=== PATIENT | female | born 1960 | race Caucasian/White ===

== ENCOUNTER 2020-06-21 12:33 | Emergency (ER) | payer MEDICAID ==
[~2020-06-21] VITALS: Ht 154.9 cm; Wt 59.0 kg
[2020-06-21 13:22] VITALS: BP 134/67
--- NOTE | 2020-06-21 14:33 | NUR ---
PATIENT LEFT WITHOUT BEING SEEN BY DR. OLIVEIRA. NO FURTHER CARE PROVIDED FOR PATIENT.
== END 2020-06-21 14:33 | disposition left against medical advice (07) ==
LOC: MED 12:33
DX: R11.2 Nausea with vomiting, unspecified (principal); R19.7 Diarrhea, unspecified; Z53.21 Procedure and treatment not carried out due to patient leaving prior to being seen by health care provider